=== PATIENT | male | born 1935 | race Native Hawaiian/Other Pacific Islander ===

== ENCOUNTER 2020-07-30 16:30 | Emergency (ER) | payer OTHER ==
[~2020-07-30] VITALS: Ht 182.9 cm; Wt 63.0 kg
[2020-07-30 16:52] LABS: PLATELET COUNT 182 K/uL (142-355)
[2020-07-30 17:00] LABS: POTASSIUM 4.1 mmol/L (3.6-5.2)
[2020-07-30 17:40] VITALS: BP 133/67; TEMP 97.9
[2020-07-30] MEDS ORDERED: APAP325 MG PO (19:00)
[2020-07-30] MEDS ORDERED: HALO5INJ3 IM (19:01)
[2020-07-30] MEDS ORDERED: LISI5TAB10 PO (19:02)
[2020-08-13] MEDS ORDERED: MELATONIN MAXIMU5 MG PO (08:41)
[2020-08-13] MEDS ORDERED: CYAN10009 IM (08:41)
[2020-08-13] MEDS ORDERED: MEMA5TAB PO (08:41)
[2020-08-13] MEDS ORDERED: ESCI10TA PO (08:42)
[2020-08-13] MEDS ORDERED: VITAMIN D50000 UNIT PO (08:42)
[2020-08-13] MEDS ORDERED: DONE5TAB PO (08:42)
== END 2020-07-30 17:40 | disposition other institution (70) ==
LOC: ED 16:30
PROVIDERS: Family Medicine
DX: R46.89 Other symptoms and signs involving appearance and behavior (principal); I10 Essential (primary) hypertension; Z11.59 Encounter for screening for other viral diseases; Z04.6 Encounter for general psychiatric examination, requested by authority
CPT/HCPCS: 80053; 85027; 87635; 93005; 99283; 99285; U0003